=== PATIENT | male | born 1955 | race Caucasian/White ===

== ENCOUNTER 2020-10-29 07:31 | Outpatient (CLI) | payer MEDICARE ==
--- NOTE | 2020-10-29 10:14 | CT Report ---
PROCEDURE: Sinuses INDICATIONS: DYSPNEA TECHNIQUE: Noncontrast 3.0 mm axial images acquired from the frontal sinuses to the mid-sella, with coronal and sagittal reformats. For radiation dose reduction, the following was used: automated exposure control , adjustment of mA and/or kV according to patient size. COMPARISON: None. FINDINGS: Image quality: Excellent. Maxillary Sinuses: No bony remodeling or destruction. Sinuses are clear. Ethmoid Air Cells: No bony remodeling or destruction. Sinuses are clear. Sphenoid Sinuses: No bony remodeling or destruction. Sinuses are clear. Frontal Sinuses: No bony remodeling or destruction. Sinuses are clear. Ostiomeatal Complexes: Ostiomeatal complexes are patent. No Ledy cells. Miscellaneous: Visualized intra-orbital contents are normal. No yun bullosa. Mild leftward nasal septal deviation. IMPRESSION: Mild leftward nasal septal deviation. Clear sinuses Reviewed by: Jeremy Garcia MD on 10/29/2020 10:12 AM PDT Approved by: Jeremy Garcia MD on 10/29/2020 10:12 AM PDT Station ID: [id number]
== END 2020-10-29 07:32 | disposition home or self-care (01) ==
LOC: DI 07:31
PROVIDERS: ATTEND Internal Medicine
DX: J34.2 Deviated nasal septum (principal)